=== PATIENT | male | born 1940 | race Caucasian/White ===

== ENCOUNTER → 2020-03-14 | Outpatient (CLI) | payer MEDICARE, SELFPAY ==
--- NOTE | 2020-03-14 09:09 | XR_ITS ---
Examination: IR staple removal Port-A-Cath implantation site Exam date and time: March 14, 2020 0909 hrs. Indications: 11 days post Port-A-Cath implantation, removal lennie Finding: Successful removal lennie of Port-A-Cath incision site Estimated blood loss 0 cc Patient in stable condition at completion procedure Impression: Successful IR staple removal at Port-A-Cath implantation site
== END | disposition home or self-care (01) ==
PROVIDERS: PCP Family Medicine; Referring Provider Internal Medicine Hematology & Oncology; Visit Provider Internal Medicine Hematology & Oncology
DX: I10 Essential (primary) hypertension (principal)